=== PATIENT | male | born 1955 | race Caucasian/White ===

== ENCOUNTER → 2016-08-21 | Outpatient (CLI) | payer BC ==
[~2016-08-21] VITALS: Ht 188 cm; Wt 93.2 kg
[~2016-08-21] MED LIST: ASPIRIN E.C. 8181 MG PO; CLARITIN 1010 MG/TAB PO; FISH OIL1 IU PO; NATURAL VITAM1000 MG PO; SIMVASTATIN40 M1 PO
[2016-08-21 10:48] VITALS: BP 142/97
== END ==
LOC: AMSURD 10:29
DX: Z00.00 Encounter for general adult medical examination without abnormal findings (principal); Z12.5 Encounter for screening for malignant neoplasm of prostate; D50.8 Other iron deficiency anemias

== ENCOUNTER → 2018-08-01 | Outpatient (CLI) | payer BC ==
[~2018-08-01] VITALS: Ht 188 cm; Wt 95.5 kg
[~2018-08-01] MED LIST changes: +CARAFATE 1GM1 G PO; +FERROUS SULFAT325 M4 PO; +GLUCOSAMINE PO; +LANSOPRAZOLE30 MG PO; +ZYRTEC ALLERGY10 MG PO
[2018-08-01 15:09] LABS: URINE WBC 0 /hpf (0-3)
[2018-08-01 15:20] LABS: EOS # 0.1 (0.04-0.40); EOS % 1.2 % (0.0-4.0); HEMATOCRIT 46.3 % (42.0-52.0); HEMOGLOBIN 15.6 g/dL (13.5-18.0); LYMPH# 1.5 (1.50-4.00); MEAN CELL VOLUME 85 fl (78-100); MEAN CORPUSCULAR HEMOGLOBIN 29 pg (27-31); MEAN CORPUSCULAR HGB CONC 34 g/dL (33-37); MEAN PLATELET VOLUME 9.8 fl (7.4-10.4); MONO # 0.4 (0.20-0.80); NEU # 4.5 (1.40-6.50); PLATELET COUNT 199 K/mm3 (130-400); RED BLOOD COUNT 5.43 M/mm3 (4.20-5.60); RED CELL DISTRIBUTION WIDTH 12.8 % (11.5-14.5); WHITE BLOOD COUNT 6.5 K/mm3 (4.8-10.8)
[2018-08-01 15:30] VITALS: BP 151/99
[2018-08-01 16:06] LABS: PROTHROMBIN TIME 9.6 SECONDS (9.0-12.0)
[2018-08-01 16:16] LABS: ALBUMIN 4.1 g/dL (3.5-5.0); CALCIUM 8.9 mg/dL (8.4-10.2); TOTAL BILIRUBIN 0.9 mg/dL (0.2-1.3)
[2018-08-01 17:09] LABS: PH-URINE 5.5 (5.0 - 8.0); URINE APPEARANCE HAZY; URINE COLOR YELLOW
[2018-08-01 17:10] LABS: URINE BILIRUBIN NEGATIVE (NEGATIVE); URINE BLOOD NEGATIVE (NEGATIVE); URINE GLUCOSE NEGATIVE (NEGATIVE); URINE KETONE NEGATIVE (NEGATIVE); URINE LEUKOCYTE ESTERASE NEGATIVE (NEGATIVE); URINE NITRATE NEGATIVE (NEGATIVE); URINE PROTEIN(semi-quant) NEGATIVE (NEGATIVE); URINE UROBILINOGEN NORMAL (NORMAL)
== END ==
LOC: LAB 14:56 → AMSURD 14:56
PROVIDERS: Internal Medicine
DX: Z01.818 Encounter for other preprocedural examination (principal); K40.20 Bilateral inguinal hernia, without obstruction or gangrene, not specified as recurrent

== ENCOUNTER → 2021-01-27 | Outpatient (CLI) | payer MEDICARE, BC ==
[2021-01-27 17:23] LABS: BASO # 0.05 K/mm3 (0.02-0.10); EOS # 0.19 K/mm3 (0.04-0.40); EOS % 3.2 % (0.0-4.0); HEMATOCRIT 42.9 % (42.0-52.0); HEMOGLOBIN 14.2 g/dL (13.5-18.0); LYMPH# 2.23 K/mm3 (1.50-4.00); MEAN CELL VOLUME 82 fl (78-100); MEAN CORPUSCULAR HEMOGLOBIN 27 pg (27-31); MEAN CORPUSCULAR HGB CONC 33 g/dL (33-37); MEAN PLATELET VOLUME 9.9 fl (7.4-10.4); NEU # 3.04 K/mm3 (1.40-6.50); PLATELET COUNT 167 K/mm3 (130-400); RED BLOOD COUNT 5.25 M/mm3 (4.20-5.60); RED CELL DISTRIBUTION WIDTH 13.2 % (11.5-14.5)
[2021-01-27 17:36] LABS: POTASSIUM 4.2 mmol/L (3.5-5.1)
[2021-01-27 17:37] LABS: ALBUMIN 4.3 g/dL (3.4-4.8)
[2021-01-27 17:38] LABS: CALCIUM 9.3 mg/dL (8.3-10.5)
[2021-01-27 17:39] LABS: TOTAL PROTEIN 7.4 g/dL (6.2-8.1)
[2021-01-27 17:41] LABS: TOTAL BILIRUBIN 0.5 mg/dL (0.2-1.2)
== END ==
LOC: LAB 17:10
PROVIDERS: Internal Medicine
DX: Z12.5 Encounter for screening for malignant neoplasm of prostate (principal); K90.9 Intestinal malabsorption, unspecified; E78.5 Hyperlipidemia, unspecified; D50.9 Iron deficiency anemia, unspecified